=== PATIENT | female | born 1970 | race Caucasian/White ===

== ENCOUNTER → 2018-05-07 | Outpatient (CLI) | payer SELFPAY ==
[~2018-05-07] MED LIST: IOHEXOL 350 MG/ML 100 ML (OMNIPAQUE 350) VIAL IV ONE; NS 250 ML (IVPB) BAG IV ONE
--- NOTE | 2018-05-07 12:54 | Diagnostic Imaging Report ---
PROCEDURE: CT abdomen and pelvis with contrast. TECHNIQUE: Multiple contiguous axial images were obtained through the abdomen and pelvis after administration of intravenous contrast. INDICATION: Vaginal bleeding and lower abdominal cramping and nausea. COMPARISON: No prior studies are available for comparison. FINDINGS: The lung bases are clear. The liver demonstrates mild low density consistent with hepatic steatosis. No discrete liver mass is identified. The gallbladder is surgically absent. The pancreas and spleen are unremarkable. No adrenal mass is detected. The kidneys are unremarkable. The aorta is nonaneurysmal. No central retroperitoneal or mesenteric lymphadenopathy is seen. The small and large bowel loops are normal in caliber. There is significant diverticulosis of the sigmoid colon but no evidence of acute diverticulitis. Uterus is unremarkable. The bladder is decompressed. There is a 2.4 cm cyst in the left adnexa, likely ovarian. No pelvic lymphadenopathy is seen. The bony structures are nonacute. IMPRESSION: 1. Hepatic steatosis. 2. Uncomplicated diverticulosis. 3. 2.4 cm left adnexal cyst. Dictated by: Dictated on workstation # [id number]
== END ==
LOC: RAD 09:49
PROVIDERS: ATTEND Nurse Practitioner Family
DX: N83.8 Other noninflammatory disorders of ovary, fallopian tube and broad ligament (principal); K76.0 Fatty (change of) liver, not elsewhere classified; K57.30 Diverticulosis of large intestine without perforation or abscess without bleeding
CPT/HCPCS: 74177

== ENCOUNTER 2018-07-05 13:55 | Outpatient (CLI) | payer SELFPAY ==
[~2018-07-05] VITALS: Ht 158.8 cm; Wt 99.4 kg
[2018-07-05] MEDS ORDERED: FERR-84 PO (14:15)
[2018-07-05] MEDS ORDERED: CHOL5000 PO (14:15)
[2018-07-05] MEDS ORDERED: LEVO125T6 PO (14:15)
[2018-07-05] MEDS ORDERED: LIOT5TAB3 PO (14:15)
[2018-07-05 14:20] VITALS: BP 146/96
[2018-07-05 14:54] LABS: BASOPHILS # (AUTO) 0.1 10^3/uL (0.0-0.1); BASOPHILS % (AUTO) 1 % (0-10); EOSINOPHILS # (AUTO) 0.3 10^3/uL (0.0-0.3); EOSINOPHILS % (AUTO) 3 % (0-10); HEMATOCRIT 40 % (35-52); HEMOGLOBIN 13.9 G/DL (11.5-16.0); LYMPHOCYTES % (AUTO) 46 % (12-44); MEAN CORPUSCULAR HEMOGLOBIN 29 PG (25-34); MEAN CORPUSCULAR HGB CONC 35 G/DL (32-36); MEAN CORPUSCULAR VOLUME 83 FL (80-99); MEAN PLATELET VOLUME 9.9 FL (7.4-10.4); MONOCYTES % (AUTO) 11 % (0-12); NEUTROPHILS # (AUTO) 3.5 X 10^3 (1.8-7.8); NEUTROPHILS % (AUTO) 39 % (42-75); PLATELET COUNT 369 10^3/uL (130-400); RED BLOOD COUNT 4.83 10^6/uL (4.35-5.85); RED CELL DISTRIBUTION WIDTH 14.9 % (10.0-14.5); WHITE BLOOD COUNT 8.8 10^3/uL (4.3-11.0)
[2018-07-13] MEDS ORDERED: DOCU100C37 PO (07:47)
[2018-07-13] MEDS ORDERED: OXYC1TAB87 PO (07:47)
[2018-07-13] MEDS ORDERED: SIME80TA16 PO (07:47)
[2018-07-13] MEDS ORDERED: IBUP-844 PO (07:47)
== END 2018-07-05 16:00 | disposition home or self-care (01) ==
LOC: PREOP 13:55
PROVIDERS: ATTEND Obstetrics & Gynecology
DX: Z01.812 Encounter for preprocedural laboratory examination (principal); Z11.2 Encounter for screening for other bacterial diseases; D25.9 Leiomyoma of uterus, unspecified; N93.9 Abnormal uterine and vaginal bleeding, unspecified
CPT/HCPCS: 36415; 85025; 87081

== ENCOUNTER 2018-07-12 06:05 | Day surgery (SDC) | payer SELFPAY ==
[~2018-07-12] VITALS: Ht 158.8 cm; Wt 99.4 kg
[~2018-07-12 06:05] MED LIST changes: +CHOL5000 PO; +FERR-84 PO; -IOHEXOL 350 MG/ML 100 ML (OMNIPAQUE 350) VIAL IV ONE; +LEVO125T6 PO; +LIOT5TAB3 PO; -NS 250 ML (IVPB) BAG IV ONE
[2018-07-12 06:10] VITALS: BP 133/87
--- OUTSIDE RECORDS SUMMARY | 2018-07-12 06:17 | XMS REPORT ---
Author Author RUBIA KOO Organization [facility] Address [address] [place] [address] Care Team Providers Care Tech Ed/Woodshop Teacher Name Role Phone KING RUBIA Unavailable PROBLEMS Type Condition ICD9-CM Code [id number] Code Onset Dates Condition Status SNOMED Code Problem Abnormal uterine bleeding N93.9 Active 29503081224948 Problem History of thyroidectomy E89.0 Active 369713529 ALLERGIES Substance Reaction Event Type Date Status Morphine Sulfate itching Drug Allergy Apr, Active Ibuprofen itching Drug Allergy Apr, Active ENCOUNTERS Encounter Location Date Diagnosis [facility] [address] [phone] Apr, [facility] [address] [phone] Apr, History of thyroidectomy E89.0 [facility] [address] [phone] Apr, [place] [id number] [place] [id number] [place] [phone] Apr, History of thyroidectomy E89.0 and Abnormal uterine bleeding N93.9 IMMUNIZATIONS No Known Immunizations SOCIAL HISTORY Never Assessed REASON FOR VISIT Establish Care, patient states she is here for a referral to OBGYN for hysterectomy, vaginal bleeding since December, nausea, dizziness, was [facility], [facility] PLAN OF CARE Activity Details Follow Up 3 months or as indicated by lab/needs WWE Reason: VITAL SIGNS MEDICATIONS Medication Instructions Dosage Frequency Start Date End Date Duration Status Levothyroxine Sodium 137 MCG Orally Once a day 1 tablet on an empty stomach in the morning 24h Active Liothyronine Sodium 5 MCG Orally Once a day 1 tablet on an empty stomach 24h Active Hair Skin Nails Active iron Active RESULTS No Results PROCEDURES Procedure Date Ordered Result Body Site COMPLETE CBC W/AUTO DIFF WBC May 01, 2018 ASSAY THYROID STIM HORMONE May 01, 2018 URINALYSIS, AUTO, W/O SCOPE May 01, 2018 COMPREHEN METABOLIC PANEL May 01, 2018 VENIPUNCT, ROUTINE* May 01, 2018 INSTRUCTIONS MEDICATIONS ADMINISTERED No Known Medications MEDICAL (GENERAL) HISTORY Type Description Date Medical History ovarian cysts Medical History hypothyroid Surgical History total thyroidectomy Surgical History gall bladder removed Surgical History tubal ligation Hospitalization History surgical reasons
--- OUTSIDE RECORDS SUMMARY | 2018-07-12 06:17 | XMS REPORT ---
Author Author RUBIA KOO Organization [facility] Address [address] [place] [address] Care Team Providers Care Steward Racetrack Name Role Phone RUBIA KOO Unavailable PROBLEMS Type Condition ICD9-CM Code [id number] Code Onset Dates Condition Status SNOMED Code Problem Abnormal uterine bleeding N93.9 Active 66314901189871 Problem History of thyroidectomy E89.0 Active 738987677 ALLERGIES No Information ENCOUNTERS Encounter Location Date Diagnosis [facility] [id number] [place] [phone] Apr, [facility] [id number] [place] [phone] Apr, History of thyroidectomy E89.0 [facility] [id number] [place] [phone] Apr, [facility] [id number] [place] [phone] Apr, History of thyroidectomy E89.0 and Abnormal uterine bleeding N93.9 IMMUNIZATIONS No Known Immunizations SOCIAL HISTORY Never Assessed REASON FOR VISIT CT Scan PLAN OF CARE VITAL SIGNS MEDICATIONS Unknown Medications RESULTS No Results PROCEDURES No Known procedures INSTRUCTIONS MEDICATIONS ADMINISTERED No Known Medications MEDICAL (GENERAL) HISTORY Type Description Date Medical History ovarian cysts Medical History hypothyroid Surgical History total thyroidectomy Surgical History gall bladder removed Surgical History tubal ligation Hospitalization History surgical reasons
--- OUTSIDE RECORDS SUMMARY | 2018-07-12 06:17 | XMS REPORT ---
Author Author RUBIA KOO Organization [facility] Address [address] [place] [address] Care Team Providers Care Mophead Trimmer And Wrapper Name Role Phone RUBIA KOO Unavailable PROBLEMS Type Condition ICD9-CM Code [id number] Code Onset Dates Condition Status SNOMED Code Problem Abnormal uterine bleeding N93.9 Active [id number] Problem History of thyroidectomy E89.0 Active 742505344 ALLERGIES No Information ENCOUNTERS Encounter Location Date Diagnosis [facility] [id number] [place] [phone] Apr, [facility] [id number] [place] [phone] Apr, History of thyroidectomy E89.0 [facility] [id number] [place] [phone] Apr, [facility] [id number] [place] [phone] Apr, History of thyroidectomy E89.0 and Abnormal uterine bleeding N93.9 IMMUNIZATIONS No Known Immunizations SOCIAL HISTORY Never Assessed REASON FOR VISIT CT scan results PLAN OF CARE VITAL SIGNS MEDICATIONS Unknown Medications RESULTS No Results PROCEDURES No Known procedures INSTRUCTIONS MEDICATIONS ADMINISTERED No Known Medications MEDICAL (GENERAL) HISTORY Type Description Date Medical History ovarian cysts Medical History hypothyroid Surgical History total thyroidectomy Surgical History gall bladder removed Surgical History tubal ligation Hospitalization History surgical reasons
--- OUTSIDE RECORDS SUMMARY | 2018-07-12 06:17 | XMS REPORT ---
Author Author RUBIA KOO Organization [facility] Address [address] [place] [address] Care Team Providers Care Campus Chaplain Name Role Phone KING RUBIA Unavailable PROBLEMS Type Condition ICD9-CM Code KKQ74-AS Code Onset Dates Condition Status SNOMED Code Problem Abnormal uterine bleeding N93.9 Active 72840906045057 Problem History of thyroidectomy E89.0 Active 967881585 ALLERGIES No Information ENCOUNTERS Encounter Location Date Diagnosis [facility] [id number] [place] [phone] Apr, [facility] [id number] [place] [phone] Apr, History of thyroidectomy E89.0 [facility] [id number] [place] [phone] Apr, [facility] [id number] [place] [phone] Apr, History of thyroidectomy E89.0 and Abnormal uterine bleeding N93.9 IMMUNIZATIONS No Known Immunizations SOCIAL HISTORY Never Assessed REASON FOR VISIT Deferred lab and decrease rx PLAN OF CARE VITAL SIGNS MEDICATIONS Medication Instructions Dosage Frequency Start Date End Date Duration Status Levothyroxine Sodium 125 mcg Orally Once a day 1 tablet on an empty stomach in the morning 24h Apr, 30 day(s) Active RESULTS No Results PROCEDURES No Known procedures INSTRUCTIONS MEDICATIONS ADMINISTERED No Known Medications MEDICAL (GENERAL) HISTORY Type Description Date Medical History ovarian cysts Medical History hypothyroid Surgical History total thyroidectomy Surgical History gall bladder removed Surgical History tubal ligation Hospitalization History surgical reasons
[2018-07-12] MEDS: LACTATED RINGERS 1,000 ML IV SCH ×5 (06:20→20:01)
[2018-07-12] MEDS ORDERED: BUPIVACAINE 0.25% 30 ML (SENSORCAINE) VIAL ONE (06:36)
[2018-07-12] MEDS ORDERED: metroNIDAZOLE 500MG/100ML IVPB 100 ML IV ONE (06:45)
[2018-07-12] MEDS ORDERED: ceFAZolin 2 GM IV Premixed 50 ML IV ONE (06:45)
[2018-07-12] MEDS ORDERED: MIDAZOLAM 2 MG/2 ML (VERSED) VIAL ONE (06:46)
[2018-07-12] MEDS ORDERED: fentaNYL INJECTION 250 MCG/5 ML AMP ONE (06:46)
[2018-07-12] MEDS ORDERED: NS (IVPB) 100 ML ONE (06:50)
[2018-07-12] MEDS ORDERED: VASOPRESSIN INJECTION 20 UNIT/ML VIAL ONE (06:50)
[2018-07-12] MEDS ORDERED: ESTRADIOL VAGINAL CREAM 42.5 GM (ESTRACE) VG ONE (06:50)
--- NOTE | 2018-07-12 07:11 | Progress Note-Pre Operative ---
Pre-Operative Progress Note H&P Reviewed The H&P was reviewed, patient examined and no changes noted. Date Seen by Provider: Jul 12, 2018 Time Seen by Provider: 07:10 Date H&P Reviewed: Jul 12, 2018 Time H&P Reviewed: 07:00 Pre-Operative Diagnosis: AUB, Fibroid uterus, POP MARIAH NAVARRETE DO Jul 12, 2018 7:11 am
[2018-07-12] MEDS ORDERED: SEVOFLURANE (ULTANE) 15 ML INHAL SOLN ONE ×2 (07:57→09:31)
[2018-07-12] MEDS ORDERED: NEOSTIGMINE 1 MG/ML 5 ML SYRINGE ONE (07:57)
[2018-07-12] MEDS ORDERED: GLYCOPYRROLATE 0.2 MG/ML (ROBINUL) 2 ML VIAL ONE (07:57)
[2018-07-12] MEDS ORDERED: ROCURONIUM 10 MG/ML 5 ML SYRINGE IV ONE ×2 (07:57→08:17)
[2018-07-12] MEDS ORDERED: LIDOCAINE PF 2% 2 ML (XYLOCAINE) VIAL ONE (07:57)
[2018-07-12] MEDS ORDERED: proPOfol 200 MG/20 ML (DIPRIVAN) VIAL IV ONE (07:57)
[2018-07-12] MEDS ORDERED: DEXAMETHASONE 10 MG/ML (DECADRON) 1 ML VIAL ONE (07:57)
[2018-07-12] MEDS ORDERED: ONDANSETRON 4 MG/2 ML (SDV) Z0FRAN ONE (07:57)
[2018-07-12] MEDS ORDERED: CHLORASEPTIC LOZENGE MM PRN (09:30)
[2018-07-12] MEDS ORDERED: HYDROcodone/APAP 7.5 MG/325 MG (LORTAB, LORCET PLUS) TABLET PO PRN (09:30)
[2018-07-12] MEDS ORDERED: ANTACID SUSP 30 ML UDC (MYLANTA) PO PRN (09:30)
[2018-07-12] MEDS ORDERED: ZOLPIDEM 5 MG (AMBIEN) TAB PO PRN (09:30)
[2018-07-12] MEDS ORDERED: ONDANSETRON 4 MG/2 ML (SDV) Z0FRAN IV PRN (09:30)
[2018-07-12] MEDS ORDERED: HYDROmorphone 2 MG/ML VIAL (DILAUDID) ONE (09:32)
--- NOTE | 2018-07-12 09:33 | Discharge Inst-Women's Service ---
Discharge Inst-Women's Serv Depart Medication/Instructions New, Converted or Re-Newed RX: RX on Chart Consults/Follow Up Additional Follow Up: Yes Orders/Referrals DR. Stephens in 7-10 days and in 8 Weeks Activity Activity: Activity as Tolerated Driving Instructions: No Driving for 1 Week NO SMOKING: NO SMOKING Nothing Inside Vagina: No Douching, No Vandling, No Tampons Diet Discharge Diet: No Restrictions Symptoms to Report to : Bleeding Excessive, Pain Increased, Fever Over 101 Degrees F, Vaginal Bleeding Increase, Questions/Concerns For Any Problems or Questions: Contact Your Physician Skin/Wound Care Infection Signs and Symptoms: Increased Redness, Foul Odor of Wound, Increased Drainage, Skin Itchy or Has a Rash, Increased Swelling, Temperature Above 101 F Operative Area Clean and Dry: Keep Incision Clean/Dry Stitches/Lady/Dermabond: Dermabond, Care of Stitches Bathing Instructions: MARIAH Mg DO Jul 12, 2018 9:33 am
[2018-07-12] MEDS: KETOROLAC 30 MG/ML VIAL IV PRN ×3 (09:41→22:22)
[2018-07-12] MEDS ORDERED: fentaNYL INJECTION 100 MCG/2 ML AMP IVP ONE (09:45)
[2018-07-12] MEDS ORDERED: HYDROmorphone 2 MG/ML VIAL (DILAUDID) IV ONE (09:45)
[2018-07-12 10:50] VITALS: BP 136/64
[2018-07-12 11:05] VITALS: BP 128/71
--- NOTE | 2018-07-12 11:37 | OPERATIVE REPORT ---
DATE OF SERVICE: PREOPERATIVE DIAGNOSES: 1. A 48-year-old female with abnormal uterine bleeding. 2. Fibroid uterus. 3. Pelvic pressure and pelvic organ prolapse. POSTOPERATIVE DIAGNOSIS: 1. A 48-year-old female with abnormal uterine bleeding. 2. Fibroid uterus. 3. Pelvic pressure and pelvic organ prolapse. PROCEDURE PERFORMED: Robotic-assisted total laparoscopic hysterectomy with bilateral salpingo-oophorectomy, anterior and posterior colporrhaphy with perineoplasty. SURGEON: Michael Stephens DO. TRAVEL REGISTERED NURSE ICU: JESSI Franklin. ANESTHESIA: General endotracheal. ESTIMATED BLOOD LOSS: 100 mL. URINE OUTPUT: 100 mL clear at the end of the procedure. FLUIDS: 1500 mL of lactated Ringer solution. FINDINGS: A slightly bulky and enlarged uterus with evidence of endometriosis on the uterosacral ligaments as well as grossly normal bilateral appearing ovaries, evidence of previous tubal ligation and grossly normal appearing fallopian tubes otherwise. There was a grade III rectocele with separation of the perineal body down the perineum as well as a grade II cystocele. SPECIMEN SENT: Uterus, bilateral fallopian tubes and ovaries. INDICATIONS FOR PROCEDURE: This 48-year-old female is a patient who consulted to my office due to this ongoing issue of chronic pelvic pain and pressure as well as abnormal uterine bleeding that was irregular in nature. Endometrial sampling was found to have no signs of infectious or malignant causes for her bleeding. Upon further evaluation, examined the patient, there was also significant degree of prolapse, which may be leading to her discomfort as well. I discussed with the patient more conservative measures first; however, after in-depth conversation as well as risk and alternatives reviewed. The patient opted to proceed with more aggressive measures, but definitive and permanent measures in the form of hysterectomy. Risks of the procedure were discussed with the patient in detail including risk of bleeding, infection, damage to surrounding structures including, but not limited to bowel, bladder, ureter, kidneys, possible need for reoperation if any complications should occur, also possible laparotomy, risk from anesthesia. The patient would refuse blood transfusion due to beliefs; however, even risk of was discussed with the patient. After everything was discussed and all of her questions were answered with her daughter present, consent was obtained. The patient was taken to the operating room. OPERATIVE REPORT IN DETAIL: Once in the operating room, general anesthesia was found to be adequate, placed in dorsal lithotomy position, prepped and draped in normal sterile fashion. Carr catheter was placed using sterile technique. A weighted speculum was inserted into the patient's vagina. Right angle retractor was used to visualize the cervix, which was grasped at 12 o'clock position using a long Allis clamp. I then placed an 0 Vicryl suture through the anterior lip of the cervix and removed the Allis clamp. I used the Vicryl suture as my retraction point. I then gently sound the uterine cavity, it was found to be approximately 8 cm. I then selected a 4 cm RODY uterine manipulator colpotomy ring and an 8 cm manipulator tip. I assembled the RODY and deployed the device into the endometrial cavity with advancing the colpotomy ring around the vaginal fornix. Once this is in place, then we will able to appreciate excellent bimanual manipulation on bimanual exam. I then removed all other instruments from the patient's vagina except for the Carr catheter and the manipulator. I performed a change of gloves and took my attention to the abdomen where infraumbilically I infiltrated this area using 0.25% Marcaine and making an 8 mm incision and directed the Veress needle through the incision. Intraperitoneal placement was confirmed using saline drop test. I then proceeded with insufflation using CO2 gas and opening pressure of 7 mmHg was noted. I proceeded to max pressure of 15 mmHg, at which point I removed the Veress needle and introduced an 8 mm blunt da Bashir camera trocar. Once this was in place, I am able to confirm intraperitoneal placement using da Bashir laparoscope. I then had the patient placed in steep Trendelenburg and I am able to visualize all my findings as described above. Two lateral trocars were both placed approximately 8 to 10 cm lateral to my infraumbilical trocar. They were placed under direct visualization of the laparoscope. The skin was infiltrated using 0.25% Marcaine. Incisions were made using a knife and the trocars were placed. Once these were placed to bring in the da Bashir robot and docked in the appropriate fashion, I placed the vessel sealer in the left hand and monopolar ember in the right hand and then took my place at the operative console where I performed the following dissection bilaterally. Starting at the infundibulopelvic ligament, I bipolar cauterized this and transected using the vessel sealer. I then grasped the round ligament, bipolar cauterized and transected using the vessel sealer. I was then able to grasp the entire broad ligament, which I bipolar cauterized and transected using the vessel sealer down to the level of the lower uterine segment, at which point I the anterior and posterior leaflets of the broad ligament. The anterior leaflet was dissected around to the anterior vaginal fornix. The posterior leaflet was dissected around to the posterior vaginal fornix, which allows me to skeletonize the uterine vessels laterally and to stay clear of the ureter. Once the uterine vessels were bipolar cauterized, I am unable to perform a colpotomy at the 12 o'clock position. I picked this circumferentially around the vaginal fornix amputating the cervix away from the vagina. The entire specimen was then removed through the vagina. I then proceeded with closing the vaginal cuff using 2-0 Vicryl suture in a [id number] fashion at the lateral vaginal apices, colposuspending them to the uterosacral ligament. I then closed the remainder of the vaginal cuff using 2-0 V-Loc in a running fashion, after which there was no active bleeding noted from any of my dissection planes. I then undocked the da Bashir robot and proceeded with the remainder of the case laparoscopically. I copiously irrigated the pelvis using normal saline. Once again, there was no active bleeding noted from any of my dissection planes. I then placed FloSeal hemostatic agent over all my planes of dissection to ensure excellent postoperative hemostasis. I then had the patient taken out of steep Trendelenburg and the lateral trocars were removed under direct visualization of the laparoscope. The infraumbilical trocar was left in place to introduce 10 mL of 0.25% Marcaine into the peritoneal cavity. This trocar was then removed as well after insufflation was released. I then proceeded with closing the skin using 4-0 Monocryl interrupted subcuticular stitches. Dermabond was applied to the incision and bandage was placed at this site. I then take my attention back to the pelvis where I addressed the cystocele and rectocele. First, I approached the cystocele by placing a weighted speculum in the patient's vagina, which allows me to visualize the extent of the cystocele. I grasped the mucosa at the bladder neck using Allis clamp and infiltrate the submucosa of the cystocele defect using vasopressin, a concentration of 20 units in 100 mL of normal saline. Once all extents of the cystocele were infiltrated and there was blanching noted of the vaginal mucosa, I make an incision at the bladder neck and dissect undermining the submucosa using Metzenbaum scissors down the midline of the defect. I then grasped the lateral aspects of the mucosal dissection and dissect them from the underlying vesicovaginal fascia. Once this dissection was taken down to the lateral margins of the defect, I then trimmed the excess mucosa and reapproximated the vaginal mucosa and the vesicovaginal fascia in a running plicating fashion using 3-0 Vicryl suture in a running locked fashion. Once this was done, adequate reduction of the cystocele was noted. I then took the weighted speculum out and addressed the rectocele. I started the perineal body by infiltrating the perineum using the same vasopressin injection. I also identified all extents of the rectocele and infiltrated the submucosa of the margins of the rectocele until blanching was noted. I then incised the perineal body in a lateral fashion down the mucocutaneous junction and create an upside down triangle down the perineal body and dissected the cutaneous tissue off of the underlying subcutaneous tissue. This gives me a plan in order to start my dissection down the midline of the rectocele, which I do using Metzenbaum scissors undermining as I go down the mucosa down the midline of the rectocele. I then incised this incision down the midline following my undermined path that had already created. I then grasped the lateral aspects of this rectocele incision and bluntly dissected the rectovaginal fascia off of the submucosa and trimmed the excess vaginal mucosa. After I have done this, I reapproximated the vaginal mucosa and the rectovaginal fascia using 3-0 Vicryl suture in a running locked fashion until I go to the point of the hymenal ring, at which point I closed the remainder as I would and episiotomy by placing 2-0 Vicryl crown stitches into the bulbocavernosus muscles reapproximating and building up the perineal body in doing so. I then proceeded with closing the perineum like I would for an episiotomy by using the continuation of the 3-0 Vicryl suture in a subcutaneous running fashion and then a subcuticular running fashion back to the junction of the mucocutaneous tissue. After which, there was no active bleeding noted from any of my dissection planes. The vagina was cleaned out and irrigated. I then packed the vagina using vaginal packing soaked in Premarin cream. Lap and sponge count was correct at the end of procedure. Instrument count was correct as well. Carr catheter was left in place. Two grams of Ancef and 500 mg of Flagyl were given preoperatively for infection prophylaxis. The patient tolerated the procedure well and sent to recovery area in stable condition. Job ID: [id number] DocumentID: [id number] Dictated Date: 07/12/2018 09:50:53 [employer] [place] Date: 07/12/2018 11:37:04 Dictated By: DO JOJO RYAN
[2018-07-12] MEDS: ONDANSETRON 4 MG/2 ML (SDV) Z0FRAN IVP PRN ×2 (11:56→11:57)
[2018-07-12 12:00] VITALS: BP 146/66
[2018-07-12] MEDS: oxyCODONE/APAP 5/325MG (PERCOCET 5) TABLET PO PRN ×2 (12:01→17:53)
[2018-07-12] MEDS: SIMETHICONE 80 MG (MYLICON) CHEW PO PRN ×2 (12:01→17:55)
[2018-07-12] MEDS: DOCUSATE SODIUM 100 MG (COLACE) CAP PO PRN (12:01)
--- NOTE | 2018-07-12 14:20 | Anesthesia-General Post-Op ---
General Patient Condition Mental Status/LOC: Same as Preop Cardiovascular: Satisfactory Nausea/Vomiting: Absent Respiratory: Satisfactory Pain: Controlled Complications: Absent Post Op Complications Complications None Follow Up Care/Instructions Patient Instructions None needed. Anesthesia/Patient Condition Patient Condition Patient is doing well, no complaints, stable vital signs, no apparent adverse anesthesia problems. No complications reported per nursing. JACLYN HOFFMAN CRNA Jul 12, 2018 14:20
[2018-07-12 16:30] VITALS: BP 136/64
[2018-07-12] MEDS ORDERED: FLU QUADRIvalent (5+ YOA) 2018-2019 (AFLURIA) 0.5 ML IM ONE (18:00)
[2018-07-12 20:00] VITALS: BP 111/59
[2018-07-13 00:35] VITALS: BP 110/50
[2018-07-13] MEDS ORDERED: IBUPROFEN 600 MG (MOTRIN) TAB PO PRN (02:15)
[2018-07-13 03:59] VITALS: BP 118/67
[2018-07-13] MEDS: LACTATED RINGERS 1,000 ML IV SCH (03:59)
[2018-07-13] MEDS: oxyCODONE/APAP 5/325MG (PERCOCET 5) TABLET PO PRN (06:49)
[2018-07-13] MEDS ORDERED: OXYC1TAB87 PO (07:47)
[2018-07-13] MEDS ORDERED: DOCU100C37 PO (07:47)
[2018-07-13] MEDS ORDERED: IBUP-844 PO (07:47)
[2018-07-13] MEDS ORDERED: SIME80TA16 PO (07:47)
[2018-07-13 08:00] VITALS: BP 124/73
[2018-07-13] MEDS: DOCUSATE SODIUM 100 MG (COLACE) CAP PO PRN (10:24)
[2018-07-13 10:50] VITALS: BP 124/73
== END 2018-07-13 10:50 | disposition home or self-care (01) ==
LOC: SDC 06:05 → WS 10:40 → SDC 07-13 10:50
PROVIDERS: ATTEND Obstetrics & Gynecology
DX: N93.9 Abnormal uterine and vaginal bleeding, unspecified (principal); N80.0 Endometriosis of uterus; N83.201 Unspecified ovarian cyst, right side; N83.202 Unspecified ovarian cyst, left side; N81.10 Cystocele, unspecified; N81.6 Rectocele; E03.9 Hypothyroidism, unspecified; E66.9 Obesity, unspecified; Z68.39 Body mass index [BMI] 39.0-39.9, adult; Z79.899 Other long term (current) drug therapy
CPT/HCPCS: 84703

== ENCOUNTER 2018-12-22 19:12 | Emergency (ER) | payer SELFPAY ==
[~2018-12-22] VITALS: Ht 158.8 cm; Wt 104.3 kg
[~2018-12-22 19:12] MED LIST changes: +DOCU100C37 PO; +IBUP-844 PO; +OXYC1TAB87 PO; +SIME80TA16 PO
[2018-12-22] MEDS ORDERED: KETOROLAC 30 MG/ML VIAL IVP ONE (19:45)
--- NOTE | 2018-12-22 19:49 | ED GI ---
General Chief Complaint: Abdominal/GI Problems Stated Complaint: ABD AND BACK PAIN Source of Information: Patient Exam Limitations: No Limitations History of Present Illness Date Seen by Provider: Dec 22, 2018 Time Seen by Provider: 19:47 Initial Comments To ER per private vehicle with reports of abdomen and back pain. She has had this pain since her surgery which was a complete hysterectomy and cystocele repair by Dr. NAVARRETE. She has tried several medications including Percocet and Ditropan. She states that she wakes up every 1-2 hours during the night and sedation of flushing, intermittent nausea. She feels that her urine has a foul odor to it. Timing/Duration: Other Severity/Quality: Moderate Location: Generalized Abdomen Radiation: No Radiation Activities at Onset: None Associated Symptoms: Nausea/Vomiting Allergies and Home Medications Allergies Coded Allergies: morphine (Verified Allergy, Mild, ITCHING, 07/05/18) Home Medications Cholecalciferol (Vitamin D3) 5,000 Unit Capsule, 5,000 UNIT PO DAILY, (Reported) Docusate Sodium 100 Mg Capsule, 100 MG PO BID PRN for CONSTIPATION-1ST LINE Prescribed by: MARIAH NAVARRETE on 07/13/1847 Ferrous Sulfate 325 Mg Tablet, 65 MG PO DAILY, (Reported) Ibuprofen 600 Mg Tablet, 600 MG PO Q6H PRN for PAIN-MODERATE Prescribed by: MARIAH NAVARRETE on 07/13/18 0747 Levothyroxine Sodium 125 Mcg Tablet, 125 MCG PO DAILY, (Reported) Liothyronine Sodium 5 Mcg Tablet, 5 MCG PO DAILY, (Reported) Oxycodone HCl/Acetaminophen 1 Each Tablet, 2 TAB PO Q6HR PRN for PAIN-MODERATE Prescribed by: MARIAH NAVARRETE on 07/13/18 0747 Phenazopyridine HCl 100 Mg Tablet, 100 MG PO BID Prescribed by: MITRA BETANCUR on 12/22/182107 Simethicone 80 Mg Tab.chew, 40 MG PO TID PRN for INDIGESTION 2ND LINE Prescribed by: MARIAH NAVARRETE on 07/13/18 0747 Patient Home Medication List Home Medication List Reviewed: Yes Review of Systems Review of Systems Constitutional: see HPI EENTM: No Symptoms Reported Respiratory: No Symptoms Reported Cardiovascular: No Symptoms Reported Gastrointestinal: See HPI, Abdominal Pain; Denies Constipated, Denies Diarrhea ; Nausea Genitourinary: See HPI, Frequency Musculoskeletal: no symptoms reported Skin: no symptoms reported Psychiatric/Neurological: No Symptoms Reported Endocrine: No Symptoms Reported Past Xepwmzv-Wgasvk-Oissdv Hx Patient Social History Recent Hopitalizations: No Immunizations Up To Date Tetanus Booster (TDap): Unknown PED Vaccines UTD: No Seasonal Allergies Seasonal Allergies: Yes Past Medical History Gallbladder, Tubal Ligation Reproductive Disorders: Yes (AUB, FIBROIDS) Female Reproductive Disorders: Menstrual Problems, Polycystic Ovarian Dis DIET COUNSELOR History: Tubal Ligation Sexually Transmitted Disease: No HIV/AIDS: No Loss of Vision: Bilateral Hearing Impairment: Denies Adverse Reaction/Blood Tranf: No (NO BLOOD PRODUCTS) Physical Exam Vital Signs Vital Signs - First Documented 12/22/18 19:30 Temp 97.5 Pulse 81 Resp 24 B/P (MAP) 180/84 (116) Pulse Ox 99 O2 Delivery Room Air Capillary Refill : Height/Weight/BMI Height: 5'2.50" Weight: 219lbs. 2.0oz. 99.456044sc; 39.4 BMI Method: General Appearance: WD/WN, no apparent distress HEENT: PERRL/EOMI, normal ENT inspection Neck: non-tender, full range of motion Gastrointestinal: normal bowel sounds, soft, tenderness Extremities: normal range of motion, non-tender Neurologic/Psychiatric: alert, normal mood/affect, oriented x 3 Skin: normal color, warm/dry Progress/Results/Core Measures Results/Orders Lab Results Laboratory Tests Test 12/22/18 19:30 12/22/18 19:32 Range/Units White Blood Count 9.2 4.3-11.0 10^3/uL Red Blood Count 4.58 4.35-5.85 10^6/uL Hemoglobin 13.6 11.5-16.0 G/DL Hematocrit 39 35-52 % Mean Corpuscular Volume 85 80-99 FL Mean Corpuscular Hemoglobin 30 25-34 PG Mean Corpuscular Hemoglobin Concent 35 32-36 G/DL Red Cell Distribution Width 14.2 10.0-14.5 % Platelet Count 372 130-400 10^3/uL Mean Platelet Volume 9.8 7.4-10.4 FL Neutrophils (%) (Auto) 41 L 42-75 % Lymphocytes (%) (Auto) 46 H 12-44 % Monocytes (%) (Auto) 9 0-12 % Eosinophils (%) (Auto) 4 0-10 % Basophils (%) (Auto) 1 0-10 % Neutrophils # (Auto) 3.8 1.8-7.8 X 10^3 Lymphocytes # (Auto) 4.2 H 1.0-4.0 X 10^3 Monocytes # (Auto) 0.8 0.0-1.0 X 10^3 Eosinophils # (Auto) 0.4 H 0.0-0.3 10^3/uL Basophils # (Auto) 0.1 0.0-0.1 10^3/uL Sodium Level 140 135-145 MMOL/L Potassium Level 3.3 L 3.6-5.0 MMOL/L Chloride Level 103 98-107 MMOL/L Carbon Dioxide Level 26 21-32 MMOL/L Anion Gap 11 5-14 MMOL/L Blood Urea Nitrogen 16 7-18 MG/DL Creatinine 0.78 0.60-1.30 MG/DL Estimat Glomerular Filtration Rate > 60 BUN/Creatinine Ratio 21 Glucose Level 99 70-105 MG/DL Calcium Level 10.2 H 8.5-10.1 MG/DL Corrected Calcium 10.1 8.5-10.1 MG/DL Total Bilirubin 0.2 0.1-1.0 MG/DL Aspartate Amino Transf (AST/SGOT) 25 5-34 U/L Alanine Aminotransferase (ALT/SGPT) 28 0-55 U/L Alkaline Phosphatase 93 40-136 U/L Total Protein 7.4 6.4-8.2 GM/DL Albumin 4.1 3.2-4.5 GM/DL Thyroid Stimulating Hormone (TSH) 0.03 L 0.35-4.94 UIU/ML Free Thyroxine 1.19 0.70-1.48 NG/DL Urine Color YELLOW Urine Clarity CLEAR Urine pH 6 5-9 Urine Specific [place] 1.020 1.016-1.022 Urine Protein NEGATIVE NEGATIVE Urine Glucose (UA) NEGATIVE NEGATIVE Urine Ketones NEGATIVE NEGATIVE Urine Nitrite NEGATIVE NEGATIVE Urine Bilirubin NEGATIVE NEGATIVE Urine Urobilinogen NORMAL NORMAL MG/DL Urine Leukocyte Esterase NEGATIVE NEGATIVE Urine RBC (Auto) NEGATIVE NEGATIVE Urine RBC RARE /HPF Urine WBC RARE /HPF Urine Squamous Epithelial Cells 0-2 /HPF Urine Crystals NONE /LPF Urine Bacteria FEW H /HPF Urine Casts NONE /LPF Urine Mucus NEGATIVE /LPF Urine Culture Indicated NO My Orders Orders - MITRA BETANCUR FREEZING ROOM WORKER Cbc With Automated Diff (12/22/18 19:45) Comprehensive Metabolic Panel (12/22/18 19:45) Ua Culture If Indicated (12/22/18 19:45) Iv Heplock-Insert (Order) (12/22/18 19:45) Ct Abdomen/Pelvis W (12/22/18 19:45) Ketorolac Injection (Toradol Injection) (12/22/18 19:45) Thyroid Stimulating Hormone (12/22/18 20:06) Iohexol Injection (Omnipaque 350 Mg/Ml 1 (12/22/18 20:30) Contrast Received (Contrast Received) (12/22/18 20:30) Sodium Chloride Flush (Catheter Flush Sy (12/22/18 20:30) Ns (Ivpb) (Sodium Chloride 0.9% Ivpb Bag (12/22/18 20:30) Free T4 (Free Thyroxine) (12/22/18 20:46) Phenazopyridine Tablet (Pyridium Tablet) (12/22/18 21:15) Medications Given in ED Current Medications Medications Dose Ordered Sig/Niyah Route Start Time Stop Time Status Last Admin Dose Admin Iohexol 100 ml ONCE ONCE IV 12/22/18 20:30 12/22/18 20:31 DC 12/22/18 20:31 100 ML Ketorolac Tromethamine 15 mg ONCE ONCE IVP 12/22/18 19:45 12/22/18 19:46 DC 12/22/18 20:08 15 MG Sodium Chloride 10 ml NEEDED PRN IV 12/22/18 20:30 12/22/18 20:31 10 ML Sodium Chloride 100 ml ONCE ONCE IV 12/22/18 20:30 12/22/18 20:31 DC 12/22/18 20:31 80 ML Vital Signs/I&O 12/22/18 19:30 Temp 97.5 Pulse 81 Resp 24 B/P (MAP) 180/84 (116) Pulse Ox 99 O2 Delivery Room Air Diagnostic Imaging Diagonstic Imaging: CT Comments NAME: JORGE FERGUSON MED REC#: [id number] PT STATUS: REG ER : 1970 PHYSICIAN: MITRA BETANCUR FREEZING ROOM WORKER ADMIT DATE: 12/22/18/ER Draft Date of Exam:12/22/18 CT ABDOMEN/PELVIS W PROCEDURE: CT abdomen and pelvis with contrast. TECHNIQUE: Multiple contiguous axial images were obtained through the abdomen and pelvis after administration of intravenous contrast. INDICATION: Bloating, tenderness, discolored urine. COMPARISON: 05/07/2018. EXAMINATION: The lung bases and basilar pleura appear clear. The liver is unremarkable. The gallbladder is surgically absent. No bile duct dilatation. The pancreas appears normal. There is no stone along the course of the extrahepatic bile duct. No pancreatic mass or acute inflammation. The adrenals, spleen and kidneys appear normal. There is no bowel obstruction. There is no ascites, abscess, hematoma or fluid collection. The urinary bladder appears unremarkable. The uterus is absent. There is no adnexal lesion. There is diverticulosis of the sigmoid colon without findings of diverticulitis. There is no appendicitis. No free air. No focal inflammatory process. IMPRESSION: 1. Unremarkable and unobstructed urinary tracts. 2. Noninflamed diverticulosis. 3. No hepatobiliary or pancreatic abnormality. Dictated on workstation # [id number] Dict: 12/22/182046 Trans: 12/22/182054 [facility] [id number] Interpreted by: RACHEL MORGAN Electronically signed by: Departure Communication (Admissions) Had a discussion with the patient. She is also tried Pyridium so I won't use that. She states she needs help sleeping. I'll prescribe lorazepam. She states that she has been to an herbalist and uses some essential oils to her abdomen which is helpful, she also laid her hand on some sort of device at the herbalist 's office and it read her pain. Impression Primary Impression: Dysuria Disposition: 01 HOME, SELF-CARE Condition: Stable Departure-Patient Inst. Decision time for Depature: 20:58 Referrals: LINA HUTCHINS DO (PCP/Family) Primary Care Physician Patient Instructions: Dysuria, Adult (DC) Add. Discharge Instructions: 1. Follow-up with Dr. NAVARRETE. Return to the emergency room for any worsening. Take medication as directed but beware it may turn your urine a very bright orange color. Do not let this alarm you. All discharge instructions reviewed with patient and/or family. Voiced understanding. Scripts Lorazepam (Lorazepam) 0.5 Mg Tablet 0.5 MG PO HS, #10 TAB Prov: MITRA BETANCUR FREEZING ROOM WORKER 12/22/18 Phenazopyridine HCl (Pyridium) 100 Mg Tablet 100 MG PO BID, #4 TAB Prov: MITRA BETANCUR APRN 12/22/18 Copy Copies To 1: MARIAH NAVARRETE PETER J APRN Dec 22, 2018 19:49
[2018-12-22 19:50] LABS: BILIRUBIN,URINE NEGATIVE (NEGATIVE); CLARITY,URINE CLEAR; COLOR,URINE YELLOW; GLUCOSE, URINE (UA) NEGATIVE (NEGATIVE); KETONES,URINE NEGATIVE (NEGATIVE); LEUKOCYTE ESTERASE ,URINE NEGATIVE (NEGATIVE); NITRITE,URINE NEGATIVE (NEGATIVE); PH,URINE 6 (5-9); PROTEIN,URINE NEGATIVE (NEGATIVE); UROBILINOGEN,URINE NORMAL (NORMAL)
[2018-12-22 19:51] LABS: BASOPHILS # (AUTO) 0.1 10^3/uL (0.0-0.1); BASOPHILS % (AUTO) 1 % (0-10); EOSINOPHILS # (AUTO) 0.4 10^3/uL (0.0-0.3); EOSINOPHILS % (AUTO) 4 % (0-10); HEMATOCRIT 39 % (35-52); HEMOGLOBIN 13.6 G/DL (11.5-16.0); LYMPHOCYTES # (AUTO) 4.2 X 10^3 (1.0-4.0); LYMPHOCYTES % (AUTO) 46 % (12-44); MEAN CORPUSCULAR HEMOGLOBIN 30 PG (25-34); MEAN CORPUSCULAR HGB CONC 35 G/DL (32-36); MEAN CORPUSCULAR VOLUME 85 FL (80-99); MEAN PLATELET VOLUME 9.8 FL (7.4-10.4); MONOCYTES # (AUTO) 0.8 X 10^3 (0.0-1.0); MONOCYTES % (AUTO) 9 % (0-12); NEUTROPHILS # (AUTO) 3.8 X 10^3 (1.8-7.8); NEUTROPHILS % (AUTO) 41 % (42-75); PLATELET COUNT 372 10^3/uL (130-400); RED CELL DISTRIBUTION WIDTH 14.2 % (10.0-14.5); WHITE BLOOD COUNT 9.2 10^3/uL (4.3-11.0)
[2018-12-22 19:57] LABS: BACTERIA,URINE FEW /HPF; RBC,URINE RARE /HPF; SQUAMOUS EPITHELIAL CELL,UR 0-2 /HPF; WBC,URINE RARE /HPF
[2018-12-22 20:04] LABS: ALANINE AMINOTRANSFERASE 28 U/L (0-55); ALBUMIN 4.1 GM/DL (3.2-4.5); ALKALINE PHOSPHATASE 93 U/L (40-136); BILIRUBIN,TOTAL 0.2 MG/DL (0.1-1.0); BUN/CREATININE RATIO 21; CALCIUM 10.2 MG/DL (8.5-10.1); CARBON DIOXIDE 26 MMOL/L (21-32); CHLORIDE 103 MMOL/L (98-107); CREATININE SERUM 0.78 MG/DL (0.60-1.30); GFR ESTIMATED > 60; GLUCOSE 99 MG/DL (70-105); POTASSIUM 3.3 MMOL/L (3.6-5.0); SODIUM 140 MMOL/L (135-145); TOTAL PROTEIN 7.4 GM/DL (6.4-8.2)
[2018-12-22] MEDS ORDERED: IOHEXOL 350 MG/ML 100 ML (OMNIPAQUE 350) VIAL IV ONE (20:30)
[2018-12-22] MEDS ORDERED: NS 100 ML (IVPB) BAG IV ONE (20:30)
[2018-12-22] MEDS ORDERED: RECEIVED CONTRAST 20 ML VIAL IV SCH (20:30)
[2018-12-22] MEDS ORDERED: CATHETER FLUSH 10 ML SYR IV PRN (20:30)
--- NOTE | 2018-12-22 20:55 | Diagnostic Imaging Report ---
PROCEDURE: CT abdomen and pelvis with contrast. TECHNIQUE: Multiple contiguous axial images were obtained through the abdomen and pelvis after administration of intravenous contrast. INDICATION: Bloating, tenderness, discolored urine. COMPARISON: 05/07/2018. EXAMINATION: The lung bases and basilar pleura appear clear. The liver is unremarkable. The gallbladder is surgically absent. No bile duct dilatation. The pancreas appears normal. There is no stone along the course of the extrahepatic bile duct. No pancreatic mass or acute inflammation. The adrenals, spleen and kidneys appear normal. There is no bowel obstruction. There is no ascites, abscess, hematoma or fluid collection. The urinary bladder appears unremarkable. The uterus is absent. There is no adnexal lesion. There is diverticulosis of the sigmoid colon without findings of diverticulitis. There is no appendicitis. No free air. No focal inflammatory process. IMPRESSION: 1. Unremarkable and unobstructed urinary tracts. 2. Noninflamed diverticulosis. 3. No hepatobiliary or pancreatic abnormality. Dictated by: Dictated on workstation # [id number]
[2018-12-22] MEDS ORDERED: PHEN-639 PO (21:08)
[2018-12-22] MEDS ORDERED: PHENAZOPYRIDINE 100 MG (PYRIDIUM) TABLET PO ONE (21:15)
[2018-12-22] MEDS ORDERED: RX-LORAZEPAM (ATIVAN) 0.5 MG TAB PPK#4 PO ONE (21:22)
[2018-12-22] MEDS ORDERED: LORA0.5T PO (21:25)
[2018-12-22] MEDS ORDERED: RX-LORAZEPAM (ATIVAN) 0.5 MG TAB PPK#4 PO STA (21:32)
[2018-12-22 21:35] VITALS: BP 144/89
--- OUTSIDE RECORDS SUMMARY | 2018-12-23 14:01 | XMS REPORT ---
Author Author RUBIA KOO [facility] Address [address] [place] [address] Care Team Providers Care Orthotic And Prosthetic Technician Name Role Phone JENNIFER KOOTA Unavailable PROBLEMS Type Condition ICD9-CM Code NOL60-AH Code Onset Dates Condition Status SNOMED Code Problem Abnormal uterine bleeding N93.9 Active 09766146371067 Problem History of thyroidectomy E89.0 Active [id number] ALLERGIES No Information ENCOUNTERS Encounter Location Date Diagnosis [facility] [address] [address] Sep, [facility] [address] [address] Aug, [facility] [address] [address] Aug, [facility] [address] [address] Aug, [facility] [address] [address] Aug, [facility] [address] [address] Apr, [facility] [id number] [place] [address] Apr, History of thyroidectomy E89.0 [facility] [address] [address] Apr, [facility] [id number] [place] [address] Apr, History of thyroidectomy E89.0 and Abnormal uterine bleeding N93.9 IMMUNIZATIONS No Known Immunizations SOCIAL HISTORY Never Assessed REASON FOR VISIT request call back PLAN OF CARE VITAL SIGNS MEDICATIONS Unknown Medications RESULTS No Results PROCEDURES No Known procedures INSTRUCTIONS MEDICATIONS ADMINISTERED No Known Medications MEDICAL (GENERAL) HISTORY Type Description Date Medical History ovarian cysts Medical History hypothyroid Surgical History total thyroidectomy Surgical History gall bladder removed Surgical History tubal ligation Hospitalization History surgical reasons
--- OUTSIDE RECORDS SUMMARY | 2018-12-23 14:01 | XMS REPORT ---
Author Author NAVYA PHOENIX [facility] Address [address] [place] [address] Care Team Providers Care Manager Publishing Name Role Phone NAVYA [place] Unavailable PROBLEMS Type Condition ICD9-CM Code AIE92-MR Code Onset Dates Condition Status SNOMED Code Problem Acute right-sided back pain with sciatica M54.41 Active 868985799 Problem Abnormal uterine bleeding N93.9 Active 93387583900178 Problem History of thyroidectomy E89.0 Active 722459477 ALLERGIES Substance Reaction Event Type Date Status Morphine Sulfate itching Drug Allergy Sep, Active Ibuprofen itching Drug Allergy Sep, Active ENCOUNTERS Encounter Location Date Diagnosis [facility] [id number] [place] [address] Oct, [facility] [id number] [place] [address] Sep, Dysuria R30.0 and Acute right-sided back pain with sciatica M54.41 [facility] [id number] [place] [address] Aug, [facility] [id number] [place] [address] Aug, [facility] [id number] [place] [address] Aug, [facility] [address] [address] Aug, [facility] [id number] [place] [address] Apr, [facility] [address] [address] Apr, History of thyroidectomy E89.0 [facility] [address] [facility] [id number] [place] [address] Apr, 2018 [facility] [address] [facility] [id number] [place] [address] Apr, 2018 History of thyroidectomy E89.0 and Abnormal uterine bleeding N93.9 IMMUNIZATIONS No Known Immunizations SOCIAL HISTORY Never Assessed REASON FOR VISIT complaining of dysuria since june (post hysterectomy). also reports urgency with little results. pb, also reports bilateral flank pain PLAN OF CARE Activity Details Follow Up if not improving or regular follow up with pcp Reason: VITAL SIGNS Height 63 in 2018-10-13 Weight 228.6 lbs 2018-10-13 Temperature 99.1 degrees Fahrenheit 2018-10-13 Heart Rate 84 bpm 2018-10-13 Respiratory Rate 20 2018-10-13 BMI 40.49 kg/m2 2018-10-13 Blood pressure systolic 130 mmHg 2018-10-13 Blood pressure diastolic 82 mmHg 2018-10-13 MEDICATIONS Medication Instructions Dosage Frequency Start Date End Date Duration Status PredniSONE 20 MG Orally Once a day 3 tablets 24h Sep, 3 days Active Hair Skin Nails Active Levothyroxine Sodium 125 mcg Orally Once a day 1 tablet on an empty stomach in the morning 24h 30 Active Liothyronine Sodium 5 MCG Orally Once a day 1 tablet on an empty stomach 24h 30 days Active RESULTS No Results PROCEDURES Procedure Date Ordered Result Body Site URINALYSIS, AUTO, W/O SCOPE Oct 13, 2018 INSTRUCTIONS MEDICATIONS ADMINISTERED No Known Medications MEDICAL (GENERAL) HISTORY Type Description Date Medical History ovarian cysts Medical History hypothyroid Surgical History total thyroidectomy Surgical History gall bladder removed Surgical History tubal ligation Surgical History TVH with BSO 07/12/2018 Surgical History MMK 07/12/2018 Hospitalization History surgical reasons
--- OUTSIDE RECORDS SUMMARY | 2018-12-23 14:01 | XMS REPORT ---
Author Author RUBIA KOO Organization [facility] Address [address] [place] [address] Care Team Providers Care Bullet Lubricating Machine Operator Name Role Phone KING RUBIA Unavailable PROBLEMS Type Condition ICD9-CM Code XIV11-DN Code Onset Dates Condition Status SNOMED Code Problem Abnormal uterine bleeding N93.9 Active 84472633521373 Problem History of thyroidectomy E89.0 Active 708054056 ALLERGIES No Information ENCOUNTERS Encounter Location Date Diagnosis [place] [id number] [place] [address] Aug, [place] [address] [address] Aug, [facility] [id number] [place] [address] Aug, [facility] [address] [address] Aug, [facility] [id number] [place] [address] Apr, [place] [address] [address] Apr, History of thyroidectomy E89.0 [facility] [id number] [place] [address] Apr, [place] [address] [address] Apr, History of thyroidectomy E89.0 and Abnormal uterine bleeding N93.9 IMMUNIZATIONS No Known Immunizations SOCIAL HISTORY Never Assessed REASON FOR VISIT Refill request PLAN OF CARE VITAL SIGNS MEDICATIONS Medication Instructions Dosage Frequency Start Date End Date Duration Status Liothyronine Sodium 5 MCG Orally Once a day 1 tablet on an empty stomach 24h Active RESULTS No Results PROCEDURES No Known procedures INSTRUCTIONS MEDICATIONS ADMINISTERED No Known Medications MEDICAL (GENERAL) HISTORY Type Description Date Medical History ovarian cysts Medical History hypothyroid Surgical History total thyroidectomy Surgical History gall bladder removed Surgical History tubal ligation Hospitalization History surgical reasons
--- OUTSIDE RECORDS SUMMARY | 2018-12-23 14:01 | XMS REPORT ---
Author Author RUBIA KOO Organization [facility] Address [address] [place] [address] Care Team Providers Care Motor Equipment Sergeant Name Role Phone KING RUBIA Unavailable PROBLEMS Type Condition ICD9-CM Code EXK55-VM Code Onset Dates Condition Status SNOMED Code Problem Abnormal uterine bleeding N93.9 Active [id number] Problem History of thyroidectomy E89.0 Active 561723221 ALLERGIES No Information ENCOUNTERS Encounter Location Date Diagnosis [place] [id number] [place] [address] Aug, [facility] [address] [address] Aug, [facility] [id number] [place] [address] Aug, [facility] [address] [address] Aug, [facility] [id number] [place] [address] Apr, [place] [address] [address] Apr, History of thyroidectomy E89.0 [facility] [id number] [place] [address] Apr, [facility] [address] [address] Apr, History of thyroidectomy E89.0 and Abnormal uterine bleeding N93.9 IMMUNIZATIONS No Known Immunizations SOCIAL HISTORY Never Assessed REASON FOR VISIT Pt came to clinic today to tell us Dr Stephens did some labs on her today and would send the labs to us, also wanted refills on meds, sent to [facility] in [place], pt also made an appt with PCP- Susan Salcedo RN, PT is taking a med genesis Liothyroxine 5 mg also but we have never prescribed PLAN OF CARE VITAL SIGNS MEDICATIONS Medication Instructions Dosage Frequency Start Date End Date Duration Status Levothyroxine Sodium 125 mcg Orally Once a day 1 tablet on an empty stomach in the morning 24h 30 Active RESULTS No Results PROCEDURES No Known procedures INSTRUCTIONS MEDICATIONS ADMINISTERED No Known Medications MEDICAL (GENERAL) HISTORY Type Description Date Medical History ovarian cysts Medical History hypothyroid Surgical History total thyroidectomy Surgical History gall bladder removed Surgical History tubal ligation Hospitalization History surgical reasons
== END 2018-12-22 21:35 | disposition home or self-care (01) ==
LOC: EDUNIT# 19:12 → ER 19:13
DX: R30.0 Dysuria (principal); Z88.5 Allergy status to narcotic agent; Z90.710 Acquired absence of both cervix and uterus; Z98.51 Tubal ligation status; Z87.448 Personal history of other diseases of urinary system
CPT/HCPCS: 36415; 74177; 80053; 81000; 84439; 84443; 85025

== ENCOUNTER → 2019-01-24 | Outpatient (CLI) | payer OTHER ==
[~2019-01-24] MED LIST changes: +LORA0.5T PO; +PHEN-639 PO
--- NOTE | 2019-01-24 11:51 | Diagnostic Imaging Report ---
PROCEDURE: MRI lumbar spine. TECHNIQUE: Multiplanar, multisequence MRI of the lumbar spine was performed without contrast. INDICATION: Back pain, incontinence and bilateral buttock pain. No prior studies are available for comparison. The curvature and alignment of the lumbar spine is normal. Vertebral body heights are well-maintained. No acute compression fracture or geographic marrow lesion is seen. There is a mild disc desiccation and slight disc space narrowing at L4-L5 and L5-S1 levels compatible with degenerative change. The conus is unremarkable at the L1 level. T12-L1: Central canal and neural foramina are widely patent. L1-L2: Central canal and neural foramina are widely patent. L2-L3: There is mild degenerative facet changes. Central canal is widely patent. Neural foramina are widely patent. L3-L4: There is some mild ligamentous thickening and facet arthropathy. Central canal remains widely patent. The neural foramina are widely patent. L4-L5: There is some ligamentous thickening and hypertrophic facet changes. The central canal remains patent. Neural foramina are patent. L5-S1: Hypertrophic facet changes are noted. There is ligamentous thickening. Central canal remains patent. Neural foramina are patent. Paraspinous tissues are unremarkable. IMPRESSION: Lumbar spondylosis and facet arthropathy. However, no focal disc protrusion, central canal or neural foraminal stenosis is identified. Dictated by: Dictated on workstation # [id number]
== END ==
LOC: RAD 07:57
PROVIDERS: ATTEND Nurse Practitioner Family
DX: M47.816 Spondylosis without myelopathy or radiculopathy, lumbar region (principal); M46.86 Other specified inflammatory spondylopathies, lumbar region
CPT/HCPCS: 72148